=== PATIENT | female | born 1975 | race Caucasian/White ===

== ENCOUNTER → 2017-06-09 | Outpatient (REF) ==
[2017-06-10 00:10] LABS: CHLAMYDIA/TRACH by PCR Female NOT DETECTED; NEISSERIA GON by PCR Female NOT DETECTED
== END ==
LOC: ZLAB.WCH 18:01
PROVIDERS: Nurse Practitioner Family
DX: Z01.89 Encounter for other specified special examinations (principal)

== ENCOUNTER → 2017-08-04 | Outpatient (REF) | LOC: ZLAB.WCH 18:01 | DX: Z01.89 Encounter for other specified special examinations (principal) ==

== ENCOUNTER 2017-12-22 13:55 | Day surgery (SDC) | payer OTHER ==
[~2017-12-22] VITALS: Ht 167.6 cm; Wt 65.0 kg
[2017-12-22] VITALS (7 sets, daily range): BP systolic 97–109; BP diastolic 57–71; PULSE 62–84; TEMP 98.1–98.3
[2017-12-22] MEDS ORDERED: PROTONIX 40MG T40 MG PO (15:06)
[2017-12-22] MEDS ORDERED: PROTONIX20 MG PO (15:07)
[2017-12-22] MEDS ORDERED: ULTRAM 50MG TAB50 MG PO (15:07)
== END 2017-12-22 21:20 | disposition home or self-care (01) ==
LOC: SDCO 13:55 → SURG 17:20 → SDCO 21:20
DX: K31.5 Obstruction of duodenum (principal); K31.9 Disease of stomach and duodenum, unspecified; Z80.0 Family history of malignant neoplasm of digestive organs; R35.0 Frequency of micturition
CPT/HCPCS: OP; C1727; C1769; J1100; J2405; J2704; J3010; J7120; Q9967

== ENCOUNTER 2018-11-25 07:21 | Day surgery (SDC) | payer OTHER ==
[2018-11-25] VITALS (10 sets, daily range): BP systolic 110–124; BP diastolic 67–78; PULSE 57–89; TEMP 97.2–98.5
[~2018-11-25] VITALS: Ht 167.6 cm; Wt 70.9 kg
[~2018-11-25 07:21] MED LIST: PROTONIX 40MG T40 MG PO; PROTONIX20 MG PO; ULTRAM 50MG TAB50 MG PO
[2018-11-25] MEDS ORDERED: ADIPEX-P37.5 MG PO (07:45)
[2018-11-25] MEDS ORDERED: LOMAIRA8 MG PO (08:28)
--- NOTE | 2018-11-25 11:20 | NUR ---
Patient returns to room 1 per cart from PACU and is resting with eyes closed. Offers no complaints of pain or nausea. IV fluids infusing and site is free of redness or swelling. Siderails up x2 and call light in reach. Mother in room. Allowed to rest.
--- NOTE | 2018-11-25 11:35 | NUR ---
Patient continues to rest without complaints of pain or nausea. Pack set dressing dry on abdomen x4.
--- NOTE | 2018-11-25 11:50 | NUR ---
Room air sats 99%. Continues to rest and offers no complaints of pain or nausea.
[2018-11-25] MEDS ORDERED: NORCO 325 MG-51 TAB PO (12:04)
[2018-11-25] MEDS ORDERED: MOTRIN 600600 MG/TAB PO (12:05)
--- NOTE | 2018-11-25 12:05 | NUR ---
Room air sats 100%. Continues to rest with eyes closed. Mother in room.
--- NOTE | 2018-11-25 12:20 | NUR ---
Patient continues to rest without complaints of pain. Mother in room. Patient arouses to verbal stimuli.
--- NOTE | 2018-11-25 12:50 | NUR ---
Patient arouses to verbal stimuli. Remains drowsy and allowed to rest. Mother in room.
--- NOTE | 2018-11-25 13:20 | NUR ---
More awake now and is sipping on Sprite. Mother remains in room.
--- NOTE | 2018-11-25 13:30 | NUR ---
Assisted with repositioning and is tolerating Sprite. Mother remains in room.
--- NOTE | 2018-11-25 13:40 | NUR ---
Report given to Woody PARKER.
--- NOTE | 2018-11-25 14:10 | NUR ---
Patient given two pieces of toast at this time. Patient reports soreness at incision sites. Patient educated if she can eat and not have any nausea, then she can have a PO PRN pain medication.
--- NOTE | 2018-11-25 14:25 | NUR ---
Patient is resting comfortably. Tolerated toast without any nausea. Will give PRN pain medication for incisional pain.
--- NOTE | 2018-11-25 14:35 | NUR ---
Patient up to restroom and is able to urinate without any difficulties or complications.
--- NOTE | 2018-11-25 14:50 | NUR ---
Patient education and dismissal instructions gone over with patient and patient's mother. Both verbalize understanding and all questions answered.
== END 2018-11-25 15:00 | disposition home or self-care (01) ==
LOC: SDCO 07:21
DX: K81.1 Chronic cholecystitis (principal); Z87.442 Personal history of urinary calculi; Z90.710 Acquired absence of both cervix and uterus; Z80.0 Family history of malignant neoplasm of digestive organs
CPT/HCPCS: J0330; J1100; J1885; J2405; J2550; J2704; J2710; J3010; J7120; Q9967

== ENCOUNTER 2019-04-18 12:32 | Day surgery (SDC) | payer OTHER ==
[~2019-04-18] VITALS: Ht 167.6 cm; Wt 69.3 kg
[~2019-04-18 12:32] MED LIST changes: +ADIPEX-P37.5 MG PO; +LOMAIRA8 MG PO; +MOTRIN 600600 MG/TAB PO; +NORCO 325 MG-51 TAB PO
[2019-04-18 12:51] VITALS: BP 120/89; PULSE 59; TEMP 99.3
[2019-04-18 14:45] VITALS: BP 134/78; PULSE 62; TEMP 98.5
--- NOTE | 2019-04-18 14:45 | NUR ---
Patient arrives to [facility] via cart, accompanied by [facility] RN Betsy. Bedside report received. Dr. Pearson at the bedside and talks with patient and her daughter. Per Dr. Pearson, patient may discharge to home at 1624. Patient ambulates to chair in room with steady gait. Monitoring applied - VSS and WNL on room air. She denies any pain or nausea. Complains of being cold - given warm blankets, which she says are helping. Temperature is normal. Gag reflex is intact. Offered something to drink, but she does not want anything at this time. Call light in reach. Will continue to monitor.
[2019-04-18 15:00] VITALS: BP 110/74; PULSE 55
--- NOTE | 2019-04-18 15:00 | NUR ---
VSS and WNL on room air. Patient is sleeping.
[2019-04-18 15:15] VITALS: BP 112/65; PULSE 62
--- NOTE | 2019-04-18 15:15 | NUR ---
VSS and WNL on room air. Patient is sleeping.
[2019-04-18 15:30] VITALS: BP 120/78; PULSE 61
--- NOTE | 2019-04-18 15:30 | NUR ---
Patient is resting comfortably in room. She is awake. She denies pain, nausea, or need. Does not want water at this time.
[2019-04-18 16:00] VITALS: BP 126/82; PULSE 65
--- NOTE | 2019-04-18 16:24 | NUR ---
Discharge criteria has been met. Discharge instructions discussed, denies any questions, and verbalizes understanding. Changes to clothing independently. Escorted to exit via wheelchair. Discharged to home with ride in private vehicle at 1624.
== END 2019-04-18 16:24 | disposition home or self-care (01) ==
LOC: SDCO 12:32
DX: K31.5 Obstruction of duodenum (principal); K31.9 Disease of stomach and duodenum, unspecified; K59.00 Constipation, unspecified; K92.1 Melena; K83.8 Other specified diseases of biliary tract; Z80.0 Family history of malignant neoplasm of digestive organs; Z90.49 Acquired absence of other specified parts of digestive tract; Z90.710 Acquired absence of both cervix and uterus
CPT/HCPCS: C1769; C2625; J2704; J3010; J7120; Q9967

== ENCOUNTER 2019-06-15 12:44 | Day surgery (SDC) | payer OTHER ==
[~2019-06-15] VITALS: Ht 167.6 cm; Wt 71.9 kg
[2019-06-15 13:03] VITALS: BP 111/68; PULSE 61; TEMP 97.3
--- NOTE | 2019-06-15 13:19 | NUR ---
1308-[facility], CALL LIGHT IN REACH.
[2019-06-15 14:35] VITALS: BP 123/82; PULSE 65; TEMP 97
--- NOTE | 2019-06-15 14:35 | NUR ---
TO [facility] PER CART FROM ENDOSCOPY. AMBULATED WITH ASSIST TO RECLINER. ONCE IN RECLINER, RECLINED BACK. EASILY AROUSABLE. C/O NAUSEA AND FALLS BACK TO SLEEP. DENIES PAIN OR DISCOMFORT AT THIS TIME.
[2019-06-15 14:50] VITALS: BP 129/84; PULSE 55
--- NOTE | 2019-06-15 14:50 | NUR ---
AROUSES EASILY AND ANSWERS QUESTIONS AND FALLS BACK TO SLEEP. DENIES ANYTHING TO EAT OR DRINK AT THIS TIME.
[2019-06-15 15:05] VITALS: BP 125/79; PULSE 54
[2019-06-15 15:20] VITALS: BP 127/81; PULSE 75
--- NOTE | 2019-06-15 15:20 | NUR ---
Awake and ready to go home. IV discontinued.
--- NOTE | 2019-06-15 15:25 | NUR ---
Dr. Pearson here to talk with the patient and all questions answered. Patient then dresses self and is ready for discharge.
--- NOTE | 2019-06-15 15:30 | NUR ---
Patient dismissed to home driven by friend per private vehicle and taken to the front door per wheelchair and assisted into car with dismissa instructions in hand.
== END 2019-06-15 15:30 | disposition home or self-care (01) ==
LOC: SDCO 12:44
DX: K31.5 Obstruction of duodenum (principal); K83.8 Other specified diseases of biliary tract; Z90.710 Acquired absence of both cervix and uterus; Z96.89 Presence of other specified functional implants; Z90.49 Acquired absence of other specified parts of digestive tract; Z87.19 Personal history of other diseases of the digestive system; Z87.442 Personal history of urinary calculi; Z80.0 Family history of malignant neoplasm of digestive organs
CPT/HCPCS: OP; C1769; C1874; J2704; J7030; Q9967

== ENCOUNTER 2020-04-19 09:07 | Day surgery (SDC) | payer OTHER ==
[2020-04-19] VITALS (7 sets, daily range): BP systolic 107–123; BP diastolic 70–83; PULSE 49–71; TEMP 97.4–97.8
[~2020-04-19] VITALS: Ht 167.6 cm; Wt 76.3 kg
== END 2020-04-19 12:50 | disposition home or self-care (01) ==
LOC: SDCO 09:07
DX: K31.5 Obstruction of duodenum (principal); K83.8 Other specified diseases of biliary tract; K31.9 Disease of stomach and duodenum, unspecified; R10.11 Right upper quadrant pain; K59.00 Constipation, unspecified; R19.7 Diarrhea, unspecified; R35.0 Frequency of micturition; Z79.899 Other long term (current) drug therapy; Z90.710 Acquired absence of both cervix and uterus; Z80.0 Family history of malignant neoplasm of digestive organs
CPT/HCPCS: C1769; J2405; J2704; Q9967

== ENCOUNTER → 2021-08-20 | Outpatient (CLI) | payer OTHER | LOC: COL.RAD 08:41 | DX: R59.9 Enlarged lymph nodes, unspecified (principal) ==